=== PATIENT | female | born 1950 | race Caucasian/White ===

== ENCOUNTER → 2016-10-22 | Outpatient (CLI) | payer OTHER, MEDICAID | LOC: BRMIMAGING 11:00 | PROVIDERS: ATTEND Internal Medicine | DX: M05.9 Rheumatoid arthritis with rheumatoid factor, unspecified (principal); M20.12 Hallux valgus (acquired), left foot; M20.11 Hallux valgus (acquired), right foot; M79.671 Pain in right foot; M79.672 Pain in left foot; M85.471 Solitary bone cyst, right ankle and foot; M85.472 Solitary bone cyst, left ankle and foot; M79.641 Pain in right hand; M79.642 Pain in left hand; R93.6 Abnormal findings on diagnostic imaging of limbs | CPT/HCPCS: 73130-PO; 73630-PO ==

== ENCOUNTER → 2017-04-22 | Outpatient (CLI) | payer OTHER, MEDICAID | LOC: BRMIMAGING 11:22 | PROVIDERS: ATTEND Family Medicine | DX: Z12.31 Encounter for screening mammogram for malignant neoplasm of breast (principal); Z85.3 Personal history of malignant neoplasm of breast | CPT/HCPCS: G0202-52 ==

== ENCOUNTER → 2017-04-29 | Outpatient (CLI) | payer OTHER, MEDICAID | LOC: BRMIMAGING 09:10 | PROVIDERS: ATTEND Family Medicine | DX: R92.8 Other abnormal and inconclusive findings on diagnostic imaging of breast (principal) | CPT/HCPCS: 76641; G0206 ==

== ENCOUNTER → 2017-10-23 | Outpatient (CLI) | payer OTHER, MEDICAID | LOC: BRMIMAGING 14:06 | PROVIDERS: ATTEND Internal Medicine | DX: R76.12 Nonspecific reaction to cell mediated immunity measurement of gamma interferon antigen response without active tuberculosis (principal); M05.9 Rheumatoid arthritis with rheumatoid factor, unspecified; R91.8 Other nonspecific abnormal finding of lung field | CPT/HCPCS: 71046-PO ==

== ENCOUNTER → 2018-04-13 | Outpatient (CLI) | payer MEDICAID, OTHER | DX: Z12.31 Encounter for screening mammogram for malignant neoplasm of breast (principal); Z85.3 Personal history of malignant neoplasm of breast; Z80.3 Family history of malignant neoplasm of breast ==